=== PATIENT | male | born 1950 | race Caucasian/White ===

== ENCOUNTER 2018-02-19 15:00 | Outpatient (RCR) | payer MEDICARE, OTHER ==
[~2018-02-19 15:00] MED LIST: ALDACTONE25 MG PO; ASPIRIN81 MG PO; COREG6.25 MG PO; CRESTOR10 MG PO; LEVOTHYROX200 MCG/VI IV; LEVOTHYROXINE137 MCG PO; LISINOPRIL10 MG PO; PACERONE200 MG PO; PLAVIX75 MG PO; XARELTO20 MG PO
== END 2018-03-07 ==
LOC: PT 15:00
PROVIDERS: ATTEND Specialist
DX: M99.53 Intervertebral disc stenosis of neural canal of lumbar region (principal); M43.16 Spondylolisthesis, lumbar region; M62.81 Muscle weakness (generalized)
CPT/HCPCS: 97110 ×7; 97162; G8981; G8982 ×2; G8983